=== PATIENT | female | born 1965 | race Caucasian/White ===

== ENCOUNTER 2019-10-06 03:10 | Emergency (ER) | payer BC ==
[2019-10-06 03:37] LABS: Bacteria/HPF None Seen HPF (None Seen); Bilirubin Negative (Negative); Blood, Urine Trace (Negative); Clarity Clear (Clear); Glucose, Urine (Dipstick) Normal (Negative); Leukocyte Negative Leu/uL (Negative); Nitrite Negative (Negative); Protein, Urine (Dipstick) Negative (Neg-Trace); Squamous Epithelial None Seen HPF (0-3); Urobilinogen Normal mg/dL (Less than 2); WBC/HPF 0-3 HPF (0-3)
[2019-10-06] MEDS ORDERED: Ondansetron ODT 4 MG TAB ONE (03:40)
[2019-10-06 03:51] LABS: #Basophils 0.1 thou/uL (0.0-0.2); #Eosinphils 0.1 thou/uL (0.0-0.7); #Lymphocytes 1.9 thou/uL (1.20-3.40); #Monocytes 0.6 thou/uL (0.11-0.59); #Neutrophils 7.8 thou/uL (1.40-6.50); %Basophils 0.5 % (0.0-1.0); %Eosinophils 0.6 % (0.0-10.0); %Lymphocytes 18.3 % (21.0-51.0); %Monocytes 6.1 % (0.0-10.0); %Neutrophils 74.5 % (42.0-75.0); Hemoglobin 13.8 g/dL (12.0-16.0); Mean Corpuscular HGB CONC 34.5 g/dL (32.0-36.0); Mean Corpuscular Hemoglobin 32.5 pg (27.0-31.0); Mean Corpuscular Volume 94.1 fL (78.0-98.0); Mean Platelet Volume 7.3 fL (7.4-10.4); Platelet Count 362 thou/uL (130-400); RBC Distribution Width 11.4 % (11.5-14.5); Red Blood Cell (RBC) Count 4.25 mill/uL (4.20-5.40); White Blood Cell (WBC) Count 10.5 thou/uL (4.8-10.8)
[2019-10-06] MEDS ORDERED: Morphine 4 MG/ML VIAL ONE (04:05)
[2019-10-06] MEDS ORDERED: Ketorolac Tromethamine 30 MG/ML VIAL ONE (04:06)
[2019-10-06] MEDS ORDERED: Ondansetron PF 4 MG/2 ML Vial ONE (04:06)
[2019-10-06 04:10] LABS: ALT (SGPT) 17 U/L (8-55); AST (SGOT) 12 U/L (5-34); Albumin 4.6 g/dL (3.5-5.0); Alkaline Phosphatase 82 U/L (40-110); Anion Gap 14 mmol/L (10-20); BUN (Urea Nitrogen) 17 mg/dL (9.8-20.1); Bilirubin, Total 0.5 mg/dL (0.2-1.2); Calc. Creatinine Clearance 0 mL/min (70-130); Calcium 9.8 mg/dL (7.8-10.44); Carbon Dioxide 24 mmol/L (22-29); Chloride 106 mmol/L (98-107); Estimated GFR-MDRD 73; Globulin 2.8 g/dL (2.4-3.5); Glucose 164 mg/dL (70-105); Potassium 3.9 mmol/L (3.5-5.1); Protein, Total 7.4 g/dL (6.0-8.3); Sodium 140 mmol/L (136-145)
[2019-10-06] MEDS ORDERED: HYDROcodone/Acetaminophen 5/325 mg Tablet ONE (05:25)
--- NOTE | 2019-10-06 08:40 | CT ---
PRELIMINARY REPORT/[facility]/EMERGENCY AFTER HOURS PROCEDURE: EXAM: CT Abdomen and Pelvis Without Intravenous Contrast CLINICAL HISTORY: F53 presents to ED with back pain and vomiting. Pt reports right sided pain that began tonight with N /V, has not taken anything for sx. Reports she had been diagnosed w a kidney stone 30 yrs ago, does n ot recall ever passing one Hx- denies any medical problems, NKMA. TECHNIQUE: Axial computed tomography images of the abdomen and pelvis without intravenous contrast. CONTRAST: None. COMPARISON: None provided. FINDINGS: LUNG BASES: No basilar airspace consolidation or pleural effusion. LIVER: Unremarkable. GALLBLADDER AND BILE DUCTS: Unremarkable. No calcified stone. No ductal dilation. PANCREAS: Unremarkable. SPLEEN: Unremarkable. ADRENAL GLANDS: Unremarkable. KIDNEYS, URETERS, AND BLADDER: 4 mm stone at the right ureterovesical junction with proximal mild rig ht hydroureteronephrosis and right perinephric stranding. Nonobstructing stones within the right kidn ey measured up to 4 mm. No left nephrolithiasis or hydronephrosis. Urinary bladder is decompressed. STOMACH AND BOWEL: No obstruction. No wall thickening. No CT evidence of colitis or acute diverticuli tis. APPENDIX: No CT evidence for appendicitis. PERITONEUM: No free fluid. No free air. LYMPH NODES: No lymphadenopathy. REPRODUCTIVE: Unremarkable as visualized. VASCULATURE: No aortic aneurysm. ABDOMINAL WALL AND SOFT TISSUES: Unremarkable. BONES: No fracture or suspicious osseous abnormality. IMPRESSION: 4 mm stone at the right ureterovesical junction causing proximal mild right hydroureteronephrosis and right perinephric stranding. Nonobstructing stones within the right kidney measured up to 4 mm. ELECTRONICALLY SIGNED BY: Cherry De Leon MD Oct 06, 2019 5:13:51 AM [employer] This report is intended for review by the ordering physician only, in accordance of law. If you recei ve this report in error, please call [facility] at [phone]. FINAL REPORT ABDOMEN CT WITHOUT CONTRAST PELVIC CT WITHOUT CONTRAST HISTORY: Back pain and vomiting. Right-sided pain. FINDINGS: Mild right-sided obstructive uropathy secondary to the 4 mm calculus in the right ureterovesicular ju nction. Bilateral nonobstructing intrarenal calculi are noted. No evidence of bowel obstruction. A ppendix is not appreciated. Nevertheless, no inflammation at the cecal apex. IMPRESSION: This report is in agreement with the preliminary report by [facility]. Right-sided obstructive uropathy. POS: OFF
== END 2019-10-06 05:32 | disposition home or self-care (01) ==
LOC: ERS 03:10
DX: N13.2 Hydronephrosis with renal and ureteral calculous obstruction (principal)
CPT/HCPCS: 36415; 74176; 80053; 81003; 81015; 85025; 87086; 96361; 96374; 96375; J1885; J2270; J2405; Q0162

== ENCOUNTER 2019-10-08 10:24 | Day surgery (SDC) | payer BC ==
[2019-10-07 09:42] VITALS: BMI 19.5
[~2019-10-08 10:24] MED LIST: Dexamethasone 20 MG/5 ML VIAL ONE; Glycopyrrolate 0.2 MG/ML 5 ML SYRINGE ONE; Ondansetron PF 4 MG/2 ML Vial ONE; PROPOFOL 200 MG/20 ML VIAL ONE; Rocuronium Bromide 10 MG/ML (10ML VIAL) ONE; diphenhydrAMINE 50 MG/ML VIAL ONE
[2019-10-08] MEDS ORDERED: Levofloxacin 500 mg/D5W 100 ml Premix Bag ONE (11:49)
--- NOTE | 2019-10-08 11:51 | RAD ---
KUB: HISTORY: Preoperative evaluation, renal calculi COMPARISON: CT, 10/06/2019 FINDINGS: The previously noted calculus at the right ureterovesicular junction region is not definitely evident on this study and may be obscured. Additionally there does appear to be 1 right renal calculus although the second calculus seen on the prior CT study appears to be obscured as well. IMPRESSION: Previous noted calculus at the distal right ureterovesicular junction region is not distinctly eviden t although may be obscured. Evidence for one right renal calculus although the second calculus appears to be obscured.
[2019-10-08] MEDS ORDERED: Iothalamate Meglumine 60% 50 ML VIAL FS ONE (12:48)
[2019-10-08] MEDS ORDERED: Fentanyl 100 MCG/2 ML VIAL ONE (12:51)
[2019-10-08] MEDS ORDERED: SUGAMMADEX SODIUM 200 MG/2 ML VIAL ONE (13:57)
[2019-10-08] MEDS ORDERED: Oxybutynin 5 MG TAB ONE (14:19)
[2019-10-08] MEDS ORDERED: Phenazopyridine HCl 97.5 MG TABLET ONE (14:20)
--- NOTE | 2019-10-08 14:22 | RAD ---
Retrograde pyelogram: 10/08/2019 COMPARISON: None available HISTORY: Retrograde pyelogram FINDINGS: 2 images are provided. No contrast media is present on either image. There is a calcificati on in the right hemipelvis which may represent a distal right ureteral stone or stone within the urinary bladder. IMPRESSION: Punctate calcification in the right hemipelvis as detailed above.
--- NOTE | 2019-10-08 14:54 | OP ---
DATE OF PROCEDURE: 10/08/2019 PREOPERATIVE DIAGNOSES: 1. A 53-year-old female with history of hydronephrosis due to right 4-mm ureterovesical junction stone. 2. Nonobstructing right renal calculi x2 punctate 2 to 3, 4 mm in the upper pole. POSTOPERATIVE DIAGNOSES: 1. A 53-year-old female with history of hydronephrosis due to right 4-mm ureterovesical junction stone. 2. Nonobstructing right renal calculi x2 punctate 2 to 3, 4 mm in the upper pole. PROCEDURES PERFORMED: Cystoscopy, right retrograde pyelogram, dilation of intramural ureter, rigid ureteroscopy, flexible ureteroscopy, pyeloscopy, laser lithotripsy of renal calculi, basket extraction of stone, 6 x 24 double-J ureteral stent placement. ANESTHESIA: General. COMPLICATIONS: None apparent. DISPOSITION: To recovery room in stable condition. SPECIMEN: Stone for chemical analysis. INDICATIONS FOR PROCEDURE AND HISTORY: Ms. Roman is a pleasant 53-year-old female, whom I had previously seen. She presented to the emergency room due to right flank pain, rated 9/10 on the pain scale with nausea. She had vague urgency, frequency with no visualization of passage of stone and desired to proceed with ureteroscopy, laser lithotripsy. I did discuss with her regarding options of medical expulsion therapy, however, she desired to proceed with elective treatment, if able, she would like for me to clear her renal lithiasis as well. Risks and complications of the procedure were reviewed with her in detail including, but not limited to, bleeding, pain, infection, injury to adjacent organs, urosepsis, stricture formation, possible secondary procedure. All questions were answered to her satisfaction and she desired to proceed. DESCRIPTION OF PROCEDURE: After an informed consent was signed, the patient was taken to the operating room, placed in a dorsal lithotomy position with the genital area prepped and draped in the usual surgical sterile fashion. A 22-Cambodian cystoscope was utilized for cystoscopy. Preoperative KUB demonstrated pelvic calcifications. A retrograde pyelogram with an open-ended catheter demonstrated a calcification in the distal pelvis that was consistent with phlebolith as the opacifying ureter was lateral to this. There was no gross filling defect and the collecting system was opacified with mild hydronephrosis. A 0.35 Sensor wire was placed into the right upper pole. At this time, we dilated the intramural ureter gently with a [employer] 4-cm balloon dilator gently. We passed the rigid ureteroscope, which demonstrated no evidence of distal ureteral calculi. There was evidence of some edema consistent with a stone in the intramural ureter; however , she appears to have passed the distal ureteral stone. I did pass the rigid ureteroscope to the mid ureter without difficulty as she was dilated from previous obstructing stone. No stone was seen proximally. At this time, a 10-Cambodian dual-lumen access sheath was passed. After the rigid ureteroscope was removed and we opacified the collecting system and passed a second working wire Super Stiff into the right upper pole. At this time, an 11/13-Cambodian 28 navigator was passed without significant issues to the level of the proximal ureter and a flexible ureteroscope was advanced over the working Super Stiff wire. We surveyed the collecting system and the only stone that was amendable treatment was a 4 mm stone in the upper pole. There was some random plaques consistent with recurrent kidney stone former, however, no other stones were amendable to be treated. Her stone was in the upper pole, we have laser lithotripsied the stone into smaller fragment and basket extracted intact through the navigator atraumatically. There was no other stone debris of concern. The ureter was re-survey, which demonstrated no evidence of ureteral calculi or mucosal perforation of concern. A 6 x 24 double-J ureteral stent was passed without difficulty over the safety wire and distal Dangler was in situ as there was endoscopic clearance. Bladder was completely emptied in the stent, Dangler were taped to the patient's pubic symphysis. She was discharged with Bactrim DS one p.o. b.i.d. for 7 days, tramadol 50 mg #30, Azo p.r.n., VESIcare 5 mg #10, Colace p.r.n. She will follow up with me next for stent removal on Dangler. Job ID: [id number] [facility]ITALIwona
== END 2019-10-08 16:30 | disposition home or self-care (01) ==
LOC: SDC 10:24
PROVIDERS: ATTEND Urology
DX: N13.2 Hydronephrosis with renal and ureteral calculous obstruction (principal); E03.9 Hypothyroidism, unspecified; Z79.899 Other long term (current) drug therapy
CPT/HCPCS: 74018; 74420; 82365; 88300; C1758; C1769; J1100; J1200; J1956; J2405; J2704; J3010

== ENCOUNTER 2020-02-02 09:02 | Outpatient (CLI) | payer BC ==
--- NOTE | 2020-02-02 09:36 | ULT ---
Bilateral renal ultrasound CLINICAL INDICATION: Renal and ureteral stones. History of prior surgery and 2019. COMPARISON: 06/26/2016 FINDINGS: Right kidney: There is no evidence of a renal mass, renal calculus, or hydronephrosis seen. The right kidney measures 10.3 cm x 4 cm. Left kidney: There is no evidence of a renal mass, renal calculus, or hydronephrosis. The left kidney measures 11.2 cm x 5.1 cm. Urinary bladder: Decompressed and not well evaluated. Urinary bladder volume is 4 mL. There has been no interval change from prior exam. IMPRESSION: No evidence of hydronephrosis.
[2020-02-02 11:35] LABS: Anion Gap 11 mmol/L (10-20); BUN (Urea Nitrogen) 11 mg/dL (9.8-20.1); Calc. Creatinine Clearance 0 mL/min (70-130); Calcium 9.5 mg/dL (7.8-10.44); Carbon Dioxide 28 mmol/L (22-29); Chloride 101 mmol/L (98-107); Estimated GFR-MDRD 87; Glucose 86 mg/dL (70-105); Potassium 3.9 mmol/L (3.5-5.1); Sodium 136 mmol/L (136-145); Uric Acid 3.5 mg/dL (2.6-6.0)
[2020-02-02 11:41] LABS: Bacteria/HPF None Seen HPF (None Seen); Bilirubin Negative (Negative); Blood, Urine Negative (Negative); Clarity Clear (Clear); Glucose, Urine (Dipstick) Normal (Negative); Leukocyte Negative Leu/uL (Negative); Nitrite Negative (Negative); Protein, Urine (Dipstick) Negative (Neg-Trace); RBC/HPF 0-3 HPF (0-3); Squamous Epithelial 0-3 HPF (0-3); Urobilinogen Normal mg/dL (Less than 2); WBC/HPF 0-3 HPF (0-3)
[2020-02-02 11:43] LABS: Urine Culture Reflex No No
== END 2020-02-02 09:03 | disposition home or self-care (01) ==
LOC: SCSULT 09:02
PROVIDERS: ATTEND Urology
DX: N20.0 Calculus of kidney (principal); R35.0 Frequency of micturition
CPT/HCPCS: 36415; 76770; 80048; 81001; 83970; 84550

== ENCOUNTER 2021-12-06 15:55 | Outpatient (CLI) | payer BC | END 2021-12-06 15:56 | disposition home or self-care (01) | LOC: BICRAD 15:55 | PROVIDERS: ATTEND Urology | DX: N20.0 Calculus of kidney (principal) | CPT/HCPCS: 74018 ==

== ENCOUNTER 2022-07-11 07:40 | Outpatient (CLI) | payer BC | END 2022-07-11 07:41 | disposition home or self-care (01) | LOC: CT 07:40 | PROVIDERS: ATTEND Urology | DX: N20.0 Calculus of kidney (principal) | CPT/HCPCS: 74176 ==

== ENCOUNTER 2023-06-05 12:41 | Outpatient (CLI) | payer BC | END 2023-06-05 12:42 | disposition home or self-care (01) | LOC: SCSRAD 12:41 | PROVIDERS: ATTEND Nurse Practitioner Family | DX: S99.922A Unspecified injury of left foot, initial encounter (principal) ==